=== PATIENT | male | born 1970 | race Two or more races ===

== ENCOUNTER 2019-09-25 14:11 | Inpatient (IN) | payer OTHER ==
[~2019-09-25] VITALS: Ht 177.8 cm; Wt 68.9 kg
[2019-11-02] MEDS ORDERED: FAMOTIDINE20 MG PO (11:32)
[2019-11-02] MEDS ORDERED: SIMETHICONE125 M1 PO (11:33)
[2019-11-02] MEDS ORDERED: CIPRO500 MG PO (11:36)
[2019-11-02] MEDS ORDERED: FLAGYL500MG PO (11:36)
== END 2019-11-02 13:44 | disposition home or self-care (01) | DRG 330 ==
LOC: SURH 10-14 07:00 → O/R 10-14 08:35 → SURH 10-14 10:30 → SURG 10-16 20:25
PROVIDERS: ADMIT Colon & Rectal Surgery; ATTEND Colon & Rectal Surgery
PROC: 0D1B4Z4 Bypass Ileum to Cutaneous, Percutaneous Endoscopic Approach (ICD-10-PCS; 2019-10-14)
PROC: 07BC4ZX Excision of Pelvis Lymphatic, Percutaneous Endoscopic Approach, Diagnostic (ICD-10-PCS; 2019-10-14)
PROC: 0DJD8ZZ Inspection of Lower Intestinal Tract, Via Natural or Artificial Opening Endoscopic (ICD-10-PCS; 2019-10-14)
PROC: 3E0336Z Introduction of Nutritional Substance into Peripheral Vein, Percutaneous Approach (ICD-10-PCS; 2019-10-14)
PROC: 0DTP4ZZ Resection of Rectum, Percutaneous Endoscopic Approach (ICD-10-PCS; principal; 2019-10-14 07:00)
PROC: 30233N1 Transfusion of Nonautologous Red Blood Cells into Peripheral Vein, Percutaneous Approach (ICD-10-PCS; 2019-10-15)
PROC: 0DH67UZ Insertion of Feeding Device into Stomach, Via Natural or Artificial Opening (ICD-10-PCS; 2019-10-17)
PROC: 02HV33Z Insertion of Infusion Device into Superior Vena Cava, Percutaneous Approach (ICD-10-PCS; 2019-10-17)
PROC: BW21YZZ Computerized Tomography (CT Scan) of Abdomen and Pelvis using Other Contrast (ICD-10-PCS; 2019-10-21)
PROC: BW21YZZ Computerized Tomography (CT Scan) of Abdomen and Pelvis using Other Contrast (ICD-10-PCS; 2019-10-30)
DX: C20 Malignant neoplasm of rectum (principal); K56.51 Intestinal adhesions [bands], with partial obstruction; R18.8 Other ascites; K94.13 Enterostomy malfunction; D50.0 Iron deficiency anemia secondary to blood loss (chronic); F17.200 Nicotine dependence, unspecified, uncomplicated; D69.49 Other primary thrombocytopenia; Y83.8 Other surgical procedures as the cause of abnormal reaction of the patient, or of later complication, without mention of misadventure at the time of the procedure

== ENCOUNTER → 2019-11-21 09:45 | Outpatient (CLI) | payer OTHER ==
[~2019-11-21 09:45] MED LIST: CIPRO500 MG PO; FAMOTIDINE20 MG PO; FLAGYL500MG PO; SIMETHICONE125 M1 PO
== END | disposition home or self-care (01) ==
LOC: LAB 09:45
PROVIDERS: ATTEND Colon & Rectal Surgery
DX: Z03.818 Encounter for observation for suspected exposure to other biological agents ruled out (principal); C20 Malignant neoplasm of rectum; K92.2 Gastrointestinal hemorrhage, unspecified; Z85.048 Personal history of other malignant neoplasm of rectum, rectosigmoid junction, and anus

== ENCOUNTER 2019-11-26 06:00 | Day surgery (SDC) | payer OTHER | END 2019-11-26 10:07 | disposition home or self-care (01) | LOC: CIR.AMB 06:00 | PROVIDERS: ATTEND Colon & Rectal Surgery | DX: C20 Malignant neoplasm of rectum (principal) | CPT/HCPCS: 36561; C1751 ==

== ENCOUNTER 2020-12-27 08:20 | Outpatient (CLI) | payer OTHER | END 2020-12-27 08:28 | disposition home or self-care (01) | LOC: RX STUDY 08:20 | PROVIDERS: ATTEND Surgery | DX: Z12.11 Encounter for screening for malignant neoplasm of colon (principal); K31.89 Other diseases of stomach and duodenum ==